=== PATIENT | male | born 1950 | race African-American/Black ===

== ENCOUNTER 2024-01-08 08:45 | Outpatient (CLI) | payer MEDICARE, MEDICAID | END 2024-01-08 08:46 | disposition home or self-care (01) | LOC: PET 08:45 | PROVIDERS: ATTEND Internal Medicine Hematology & Oncology | DX: C16.8 Malignant neoplasm of overlapping sites of stomach (principal); M79.89 Other specified soft tissue disorders | CPT/HCPCS: 78815; A9552 ==

== ENCOUNTER 2024-02-04 12:29 | Day surgery (SDC) | payer MEDICARE, MEDICAID ==
[2024-02-04] MEDS: Acetaminophen 500 MG TAB PO SCH (13:25)
[2024-02-04] MEDS ORDERED: diphenhydrAMINE 25 MG CAP PO SCH (13:30)
[2024-02-04] MEDS: Acetaminophen 500 MG TAB ONE (13:55)
[2024-02-04 16:11] VITALS: BP 161/75; TEMP 98.5
== END 2024-02-04 16:11 | disposition home or self-care (01) ==
LOC: ONC/OP 12:29
PROVIDERS: ATTEND Internal Medicine Hematology & Oncology
DX: D64.9 Anemia, unspecified (principal); D69.6 Thrombocytopenia, unspecified
CPT/HCPCS: 36430; 86850; 86900; 86901; 86920; P9016

== ENCOUNTER 2024-05-07 09:30 | Outpatient (CLI) | payer MEDICARE, MEDICAID | END 2024-05-07 09:31 | disposition home or self-care (01) | LOC: PET 09:30 | PROVIDERS: ATTEND Internal Medicine Hematology & Oncology | DX: C16.8 Malignant neoplasm of overlapping sites of stomach (principal) | CPT/HCPCS: 78815; A9552 ==

== ENCOUNTER 2024-05-10 09:48 | Inpatient (IN) | payer MEDICARE, MEDICAID ==
[2024-05-10 10:49] LABS: #Basophils Less than 0.03 10x3/uL (0.0-0.2); #Eosinophils Less than 0.03 10x3/uL (0.0-0.7); %Basophils 0.3 % (0.0-1.0); %Eosinophils 0.3 % (0.0-10.0); %Lymphocytes 10.7 % (21.0-51.0); %Monocytes 6.9 % (0.0-10.0); %Neutrophils 79.9 % (42.0-75.0); Hematocrit 30.3 % (42.0-52.0); Hemoglobin 9.6 g/dL (14.0-18.0); Mean Corpuscular HGB CONC 31.7 g/dL (32.0-36.0); Mean Corpuscular Hemoglobin 37.2 pg (27.0-31.0); Mean Corpuscular Volume 117.4 fL (78.0-98.0); Mean Platelet Volume 9.7 fL (7.4-10.4); Platelet Count 279 10x3/uL (130-400); RBC Distribution Width 17.9 % (11.5-14.5); Red Blood Cell (RBC) Count 2.58 mill/uL (4.70-6.10)
[2024-05-10 11:07] LABS: Troponin I 0.038 ng/mL (< 0.028)
[2024-05-10 11:18] LABS: ALT (SGPT) 8 U/L (8-55); AST (SGOT) 20 U/L (5-34); Albumin 2.4 g/dL (3.4-4.8); Alkaline Phosphatase 88 U/L (40-110); Anion Gap 16 mmol/L (10-20); BUN (Urea Nitrogen) 11 mg/dL (8.4-25.7); Bilirubin, Total 1.1 mg/dL (0.2-1.2); Calc. Creatinine Clearance 0 mL/min (70-130); Carbon Dioxide 33 mmol/L (23-31); Chloride 98 mmol/L (98-107); Estimated GFR 90; Glucose 151 mg/dL (83-110); Lipase 4 U/L (8-78); Potassium 2.4 mmol/L (3.5-5.1); Protein, Total 5.4 g/dL (5.8-8.1); Sodium 145 mmol/L (136-145)
[2024-05-10 12:03] LABS: Bilirubin Negative (Negative); Blood, Urine Negative (Negative); CAUTI Indications for Culture Dysuria,urgency,freq; Clarity Turbid (Clear); Glucose, Urine (Dipstick) Normal (Negative); Ketone, Urine Trace mg/dL (Negative); Leukocyte 25 Leu/uL (Negative); Nitrite Negative (Negative); Protein, Urine (Dipstick) 30 mg/dL (Neg-Trace); RBC/HPF 0-3 HPF (0-3); Specific Gravity, Urine 1.013 (1.002-1.036); Urobilinogen 6 mg/dL (Less than 2); WBC/HPF 21-50 HPF (0-3)
[2024-05-10 12:08] LABS: Phosphorus 2.5 mg/dL (2.3-4.7)
[2024-05-10 12:09] LABS: Magnesium 1.6 mg/dL (1.6-2.6)
[2024-05-10 12:34] LABS: Bacteria/HPF 3+ HPF (None Seen)
[2024-05-10 12:35] LABS: Urine Culture Reflex Yes Yes
[2024-05-10] MEDS ORDERED: cefTRIAXone (ROCEPHIN) 1 GM VIAL ONE (12:59)
[2024-05-10] MEDS ORDERED: Sodium Chloride 0.9% 100 ML ONE (12:59)
[2024-05-10] MEDS ORDERED: Acetaminophen 325 MG TAB PO PRN (15:29)
[2024-05-10] MEDS ORDERED: Senokot S 8.6-50 MG TAB PO PRN (15:29)
[2024-05-10] MEDS ORDERED: Acetaminophen 650 MG Suppository PR PRN (15:29)
[2024-05-10] MEDS ORDERED: Dextrose 5% in Water 1,000 ML IV PRN (15:33)
[2024-05-10] MEDS ORDERED: Glucagon 1 MG/ML KIT IM PRN (15:33)
[2024-05-10] MEDS: Potassium Chloride 20 MEQ in Premix 1 BAG IVPB SCH ×2 (16:50→20:51)
[2024-05-10] MEDS: Magnesium 2 GM/50 ML(in water) 2 GM in Premix 1 BAG IVPB SCH (17:42)
[2024-05-10] MEDS: Potassium Chloride 20 MEQ in Lactated Ringer's 1,000 ML IV SCH (17:42)
[2024-05-10] MEDS ORDERED: Albuterol 2.5 MG (3 mL) NEB NEB PRN (18:56)
[2024-05-10] MEDS: Pantoprazole DR 40 MG TAB PO SCH (19:44)
[2024-05-11 04:56] LABS: #Basophils Less than 0.03 10x3/uL (0.0-0.2); %Eosinophils 2.2 % (0.0-10.0); %Lymphocytes 38.7 % (21.0-51.0); %Monocytes 8.8 % (0.0-10.0); %Neutrophils 49.4 % (42.0-75.0); Hematocrit 23.3 % (42.0-52.0); Hemoglobin 7.5 g/dL (14.0-18.0); Mean Corpuscular HGB CONC 32.2 g/dL (32.0-36.0); Mean Corpuscular Hemoglobin 36.4 pg (27.0-31.0); Mean Corpuscular Volume 113.1 fL (78.0-98.0); Mean Platelet Volume 10.1 fL (7.4-10.4); Platelet Count 205 10x3/uL (130-400); RBC Distribution Width 17.7 % (11.5-14.5); Red Blood Cell (RBC) Count 2.06 mill/uL (4.70-6.10)
[2024-05-11 05:18] LABS: Anion Gap 12 mmol/L (10-20); BUN (Urea Nitrogen) 8 mg/dL (8.4-25.7); Calc. Creatinine Clearance 80 mL/min (70-130); Carbon Dioxide 28 mmol/L (23-31); Chloride 110 mmol/L (98-107); Estimated GFR 98; Glucose 69 mg/dL (83-110); Potassium 3.3 mmol/L (3.5-5.1); Sodium 147 mmol/L (136-145)
[2024-05-11] MEDS ORDERED: Electrolyte Replacement Protocol 1 EACH FS SCH (07:45)
[2024-05-11] MEDS: Saccharomyces boulardii 250 MG CAP PO SCH (08:47)
[2024-05-11] MEDS: Potassium Chloride 20 MEQ TAB PO SCH (08:51)
[2024-05-11] MEDS: Megestrol Acetate 800 MG/20 ML UDCUP PO SCH (08:51)
[2024-05-11] MEDS ORDERED: Pantoprazole DR 40 MG TAB PO SCH (09:00)
[2024-05-11] MEDS ORDERED: Iopamidol 370 76% 100 ML VIAL ONE (09:37)
[2024-05-11] MEDS: Magnesium 2 GM/50 ML(in water) 2 GM in Premix 1 BAG IVPB SCH (11:13)
[2024-05-11] MEDS: cefTRIAXone\\ROCEPHIN 1 GM in Sodium Chloride 0.9% 100 ML IVPB SCH (13:03)
[2024-05-11 14:20] VITALS: BMI 18.6
[2024-05-11] MEDS: Ondansetron ODT 4 MG TAB PO PRN (14:41)
[2024-05-11] MEDS: Enoxaparin 60 MG (0.6 mL) SYRINGE SC SCH (18:42)
[2024-05-11] MEDS: Mirtazapine 15 MG TAB PO SCH (21:17)
[2024-05-12 05:44] LABS: Anion Gap 10 mmol/L (10-20); BUN (Urea Nitrogen) 7 mg/dL (8.4-25.7); Calc. Creatinine Clearance 87 mL/min (70-130); Calcium 7.4 mg/dL (7.8-10.44); Carbon Dioxide 30 mmol/L (23-31); Chloride 108 mmol/L (98-107); Estimated GFR 100; Glucose 71 mg/dL (83-110); Magnesium 2.1 mg/dL (1.6-2.6); Potassium 3.7 mmol/L (3.5-5.1); Sodium 144 mmol/L (136-145)
[2024-05-12 05:46] LABS: #Basophils Less than 0.03 10x3/uL (0.0-0.2); %Basophils 0.3 % (0.0-1.0); %Eosinophils 3.2 % (0.0-10.0); %Lymphocytes 41.3 % (21.0-51.0); %Monocytes 7.6 % (0.0-10.0); %Neutrophils 43.9 % (42.0-75.0); Hematocrit 25.8 % (42.0-52.0); Hemoglobin 8.5 g/dL (14.0-18.0); Mean Corpuscular HGB CONC 32.9 g/dL (32.0-36.0); Mean Corpuscular Hemoglobin 38.3 pg (27.0-31.0); Mean Corpuscular Volume 116.2 fL (78.0-98.0); Mean Platelet Volume 10.4 fL (7.4-10.4); Platelet Count 226 10x3/uL (130-400); RBC Distribution Width 17.9 % (11.5-14.5); Red Blood Cell (RBC) Count 2.22 mill/uL (4.70-6.10)
[2024-05-12 06:19] LABS: Hypochromia SLIGHT = 6-15 cells HPF (0-5); Macrocytosis MODERATE=16-30 cells HPF (0-5); Platelet Adequacy Comment Platelets Normal
[2024-05-12] MEDS: Enoxaparin 60 MG (0.6 mL) SYRINGE SC SCH (08:20)
[2024-05-12] MEDS ORDERED: Electrolyte Replacement Protocol FS PRN (10:30)
[2024-05-12] MEDS: Dextrose 50% Abboject 50 ML SYRINGE SLOW IVP PRN (12:59)
[2024-05-12] MEDS: Senokot S 8.6-50 MG TAB PO SCH (21:23)
[2024-05-12] MEDS: Ondansetron PF 4 MG/2 ML Vial IVP PRN (21:31)
[2024-05-13 05:51] LABS: #Basophils Less than 0.03 10x3/uL (0.0-0.2); %Basophils 0.2 % (0.0-1.0); %Eosinophils 1.4 % (0.0-10.0); %Lymphocytes 36.6 % (21.0-51.0); %Monocytes 8.3 % (0.0-10.0); %Neutrophils 52.3 % (42.0-75.0); Hemoglobin 8.4 g/dL (14.0-18.0); Mean Corpuscular HGB CONC 32.3 g/dL (32.0-36.0); Mean Corpuscular Hemoglobin 36.7 pg (27.0-31.0); Mean Corpuscular Volume 113.5 fL (78.0-98.0); Mean Platelet Volume 9.9 fL (7.4-10.4); Platelet Count 213 10x3/uL (130-400); RBC Distribution Width 17.3 % (11.5-14.5); Red Blood Cell (RBC) Count 2.29 mill/uL (4.70-6.10)
[2024-05-13 05:57] LABS: Anion Gap 11 mmol/L (10-20); BUN (Urea Nitrogen) 7 mg/dL (8.4-25.7); Calc. Creatinine Clearance 80 mL/min (70-130); Calcium 7.8 mg/dL (7.8-10.44); Carbon Dioxide 31 mmol/L (23-31); Chloride 108 mmol/L (98-107); Estimated GFR 98; Glucose 70 mg/dL (83-110); Potassium 3.7 mmol/L (3.5-5.1); Sodium 146 mmol/L (136-145)
[2024-05-13] MEDS: Polyethylene Glycol 3350 17 GM Packet PO SCH (09:06)
[2024-05-13] MEDS: D5 1/2 NS w/20 mEq KCL 1,000 ML IV SCH (10:43)
[2024-05-14 06:35] LABS: #Basophils Less than 0.03 10x3/uL (0.0-0.2); %Basophils 0.3 % (0.0-1.0); %Eosinophils 3.4 % (0.0-10.0); %Lymphocytes 42.2 % (21.0-51.0); %Monocytes 6.4 % (0.0-10.0); %Neutrophils 46.6 % (42.0-75.0); Hematocrit 27.2 % (42.0-52.0); Hemoglobin 8.7 g/dL (14.0-18.0); Mean Corpuscular Hemoglobin 37.3 pg (27.0-31.0); Mean Corpuscular Volume 116.7 fL (78.0-98.0); Mean Platelet Volume 9.7 fL (7.4-10.4); Platelet Count 217 10x3/uL (130-400); RBC Distribution Width 17.1 % (11.5-14.5); Red Blood Cell (RBC) Count 2.33 mill/uL (4.70-6.10)
[2024-05-14 06:40] LABS: Anion Gap 9 mmol/L (10-20); BUN (Urea Nitrogen) 6 mg/dL (8.4-25.7); Calc. Creatinine Clearance 85 mL/min (70-130); Calcium 7.7 mg/dL (7.8-10.44); Carbon Dioxide 28 mmol/L (23-31); Chloride 108 mmol/L (98-107); Estimated GFR 100; Glucose 111 mg/dL (83-110); Potassium 4.2 mmol/L (3.5-5.1); Sodium 141 mmol/L (136-145)
[2024-05-14] MEDS: Megestrol Acetate 800 MG/20 ML UDCUP PO SCH (10:51)
[2024-05-14] MEDS: Apixaban 5 MG TAB PO SCH (21:59)
[2024-05-14] MEDS: Mirtazapine 15 MG TAB PO SCH (22:00)
[2024-05-15 05:46] LABS: #Basophils Less than 0.03 10x3/uL (0.0-0.2); %Basophils 0.3 % (0.0-1.0); %Eosinophils 2.6 % (0.0-10.0); %Lymphocytes 40.1 % (21.0-51.0); %Monocytes 10.1 % (0.0-10.0); %Neutrophils 44.9 % (42.0-75.0); Hematocrit 26.5 % (42.0-52.0); Hemoglobin 8.7 g/dL (14.0-18.0); Mean Corpuscular HGB CONC 32.8 g/dL (32.0-36.0); Mean Corpuscular Hemoglobin 36.9 pg (27.0-31.0); Mean Corpuscular Volume 112.3 fL (78.0-98.0); Mean Platelet Volume 9.9 fL (7.4-10.4); Platelet Count 192 10x3/uL (130-400); RBC Distribution Width 16.7 % (11.5-14.5); Red Blood Cell (RBC) Count 2.36 mill/uL (4.70-6.10)
[2024-05-15 06:02] LABS: Anion Gap 8 mmol/L (10-20); BUN (Urea Nitrogen) 5 mg/dL (8.4-25.7); Calc. Creatinine Clearance 79 mL/min (70-130); Calcium 7.7 mg/dL (7.8-10.44); Carbon Dioxide 27 mmol/L (23-31); Chloride 108 mmol/L (98-107); Estimated GFR 98; Glucose 94 mg/dL (83-110); Potassium 4.4 mmol/L (3.5-5.1); Sodium 139 mmol/L (136-145)
[2024-05-15] MEDS: Megestrol Acetate 800 MG/20 ML UDCUP PO SCH (10:13)
[2024-05-16 07:19] LABS: #Basophils Less than 0.03 10x3/uL (0.0-0.2); %Basophils 0.3 % (0.0-1.0); %Lymphocytes 46.4 % (21.0-51.0); %Monocytes 8.1 % (0.0-10.0); %Neutrophils 41.8 % (42.0-75.0); Hematocrit 28.3 % (42.0-52.0); Mean Corpuscular HGB CONC 31.8 g/dL (32.0-36.0); Mean Corpuscular Hemoglobin 37.2 pg (27.0-31.0); Mean Corpuscular Volume 116.9 fL (78.0-98.0); Platelet Count 219 10x3/uL (130-400); RBC Distribution Width 16.5 % (11.5-14.5); Red Blood Cell (RBC) Count 2.42 mill/uL (4.70-6.10)
[2024-05-16 07:49] LABS: Anion Gap 11 mmol/L (10-20); BUN (Urea Nitrogen) 4 mg/dL (8.4-25.7); Calc. Creatinine Clearance 81 mL/min (70-130); Calcium 7.9 mg/dL (7.8-10.44); Carbon Dioxide 21 mmol/L (23-31); Chloride 108 mmol/L (98-107); Estimated GFR 98; Glucose 103 mg/dL (83-110); Potassium 4.4 mmol/L (3.5-5.1); Sodium 136 mmol/L (136-145)
[2024-05-16] MEDS: Dextrose 5 %-0.45 % NaCl 1,000 ML IV SCH (18:38)
[2024-05-18 19:35] VITALS: BP 163/87; TEMP 98.5
== END 2024-05-18 19:35 | disposition hospice, inpatient (51) | DRG 871 ==
LOC: ERS 09:48 → MSONC 16:47 → OBSVTOIN 05-11 11:42
PROVIDERS: ADMIT Internal Medicine; ATTEND Student in an Organized Health Care Education/Training Program
DX: A41.9 Sepsis, unspecified organism (principal); E43 Unspecified severe protein-calorie malnutrition; I26.99 Other pulmonary embolism without acute cor pulmonale; C16.9 Malignant neoplasm of stomach, unspecified; Z68.1 Body mass index [BMI] 19.9 or less, adult; R64 Cachexia; I10 Essential (primary) hypertension; D64.9 Anemia, unspecified; M10.9 Gout, unspecified; Z51.5 Encounter for palliative care; E87.6 Hypokalemia; N30.90 Cystitis, unspecified without hematuria; F17.210 Nicotine dependence, cigarettes, uncomplicated; E11.649 Type 2 diabetes mellitus with hypoglycemia without coma; E78.00 Pure hypercholesterolemia, unspecified; Z66 Do not resuscitate; Z92.21 Personal history of antineoplastic chemotherapy; Z92.3 Personal history of irradiation; Z88.8 Allergy status to other drugs, medicaments and biological substances; Z86.718 Personal history of other venous thrombosis and embolism; Z79.899 Other long term (current) drug therapy
CPT/HCPCS: 36415; 36416; 71045; 71275; 74178; 80048; 80053; 81001; 82607; 82728; 83540; 83550; 83605; 83690; 83735; 84100; 84484; 85025; 87040; 87086; 93005; 93306; 96361; 96374; 96375; 96376; G0378; J0696; J1650; J2405; J3475; J3480; J7042; J7120; J7999; Q0162; Q9967